=== PATIENT | male | born 1955 | race Caucasian/White ===

== ENCOUNTER → 2017-10-29 | Outpatient (CLI) | payer MEDICARE, OTHER ==
[~2017-10-29] MED LIST: ASPIR 8181 MG PO; ATORVASTATIN CA20 MG PO; BONIVA150 MG PO; CENTRUM SILVER1 EAC3 PO; CLOPIDOGREL75 MG PO; FISH OIL300 MG PO; GINKGO BILOBA60 M1 PO; METOPROLOL TART25 MG PO; NORCO 10-325 T1 EACH PO; OMEPRAZOLE40 MG PO; TACROLIMUS; Z.0.NEXIUM40 MG; Z.0.VICODIN 5-5001 E
--- NOTE | 2017-10-30 15:29 | Diagnostic Imaging Report ---
History: Low back pain and around the abdomen. Comparison studies: None Technique: Sagittal, coronal and axial T2 , sagittal T1 and IR, axial spin density oblique. Intravenous contrast: None Findings: Number of lumbar vertebral bodies:5 Alignment: Normal lordosis.No scoliosis. Soft tissues: No T2 hyperintense inflammatory changes. Paraspinal muscles: No signal abnormalities. No atrophy. Lower thoracic cord:Normal in signal and morphology. The tip of the conus is at L1-L2. Cauda equina: No masses. No arachnoiditis. Vertebrae: Normal in height and signal intensity. No compression fractures, infection or neoplasm. Degenerative changes: Disc degeneration with loss of T2 signal from T11 through L1 with patent canal and foramina L1-L2: No abnormalities. L2-L3: No abnormalities. L3-L4: Disc degeneration with loss of T2 signal. Patent canal and foramina. L4-L5: Disc degeneration with loss of T2 signal. Diffuse disc bulge and mild bilateral facet hypertrophy with grossly patent canal and mild bilateral foraminal narrowing. L5-S1: Disc degeneration with loss of T2 signal. Moderate bilateral facet hypertrophy without significant canal stenosis or foraminal narrowing. Additional findings: None IMPRESSION: Mild disc degeneration and mild to moderate facet hypertrophy the lower lumbar spine without significant canal stenosis or foraminal narrowing. Signed by: DR Oscar Fleming M.D. on 10/30/2017 3:25 PM
== END ==
LOC: MRI 09:19
DX: M54.5 Low back pain (principal); M51.36 Other intervertebral disc degeneration, lumbar region
CPT/HCPCS: 72148

== ENCOUNTER 2017-11-26 10:55 | Outpatient (RCR) | payer MEDICARE, OTHER | END 2017-11-27 | LOC: PT 10:55 | DX: M54.5 Low back pain (principal); M47.9 Spondylosis, unspecified | CPT/HCPCS: 97110 ×5; 97162; G8981; G8982 ==

== ENCOUNTER → 2017-12-27 | Outpatient (RCR) | payer MEDICARE, OTHER ==
[~2017-12-27] MED LIST changes: +ULTRAM50 MG PO
== END ==
LOC: PT 11-29 12:52
DX: M54.5 Low back pain (principal); M47.9 Spondylosis, unspecified; M53.86 Other specified dorsopathies, lumbar region; M62.81 Muscle weakness (generalized)
CPT/HCPCS: 97110 ×9; 97112; 97139; G8981; G8982

== ENCOUNTER → 2017-12-30 | Day surgery (SDC) | payer MEDICARE, OTHER ==
[2017-12-23 09:42] LABS: BASOPHILS % 0.4 % (0.0-1.0); EOSINOPHILS # (AUTO) 0.3 (0.0-0.4); EOSINOPHILS % 3.3 % (0.0-6.0); HEMATOCRIT 43.4 % (38.2-49.6); HEMOGLOBIN 14.7 g/dL (14.0-18.0); LYMPHOCYTES % 23.7 % (18.0-39.1); MEAN CORPUSCULAR HEMOGLOBIN 28.1 pg (28-32); MEAN CORPUSCULAR HGB CONC 33.9 g/dL (31-35); MONOCYTES # (AUTO) 0.8 (0.2-0.8); MONOCYTES % 9.2 % (4.4-11.3); NEUTROPHILS # (AUTO) 5.2 (2.1-6.9); NEUTROPHILS % 63.2 % (38.7-80.0); PLATELET COUNT 151 x10e3/uL (140-360); RED BLOOD COUNT 5.23 x10e6/uL (4.3-5.7); RED CELL DISTRIBUTION WIDTH 13.4 % (11.7-14.4)
[~2017-12-30] MED LIST changes: +FENTANYL CITRATE/PF 100MCG/2 ML INJ ONE; +HYOSCYAMINE SULFATE 0.5 MG/ML AMP ONE; +LIDOCAINE HCL 2% LOCAL INJ 5 ML SDV VIAL INJ ONE; +MIDAZOLAM HCL 2 MG/2 ML VIAL ONE; +PROPOFOL IV EMULSION 10 MG/ML 50 ML VIAL ONE
--- NOTE | 2017-12-30 12:37 | Operative Report ---
DATE OF PROCEDURE: December 30, 2017 REFERRING PHYSICIAN: Dr. Hafsa Wallace PROCEDURE PERFORMED: Colonoscopy and polypectomy. INDICATIONS FOR COLONOSCOPY: Colorectal cancer screening. MEDICATION: Patient was done under MAC. Please see anesthesiologist's note. PROCEDURE: With the patient in the left lateral decubitus position, the flexible fiberoptic Olympus colonoscope was inserted into the rectum with ease and advanced all the way to the cecum. It was then withdrawn slowly, and the mucosa overlying the cecum, ascending colon, and transverse colon appeared to be within normal limits. Two polyps were snared from the descending colon. Diverticular disease was noted to involve the sigmoid colon. The rectum appeared to be within normal limits. The scope was then retroflexed into the distal rectum, and small internal hemorrhoids were noted, none of which was actively bleeding. The scope was then straightened out. The rectosigmoid area as well as the distal rectal area were decompressed. Scope was subsequently withdrawn. Patient tolerated the procedure well. IMPRESSION 1. Descending colon polyps times 2, snared. 2. Diverticulosis. 3. Internal hemorrhoids, none actively bleeding. PLAN: Follow up histology. Initiate high-fiber, low-fat diet. Initiate high-fiber supplement. Patient will need a followup colonoscopy in 3 years. Job#: [id number] cc:HAFSA WALLACE MD
== END | disposition home or self-care (01) ==
LOC: OR 09:51
PROVIDERS: ATTEND Internal Medicine Gastroenterology
CPT/HCPCS: 36415; 45378; 45384; 45385; 85025; 88305; 93005; J1980; J2001; J2250

== ENCOUNTER 2018-01-10 10:00 | Outpatient (RCR) | payer MEDICARE, OTHER ==
[~2018-01-10 10:00] MED LIST changes: -FENTANYL CITRATE/PF 100MCG/2 ML INJ ONE; -HYOSCYAMINE SULFATE 0.5 MG/ML AMP ONE; -LIDOCAINE HCL 2% LOCAL INJ 5 ML SDV VIAL INJ ONE; -MIDAZOLAM HCL 2 MG/2 ML VIAL ONE; -PROPOFOL IV EMULSION 10 MG/ML 50 ML VIAL ONE
== END 2018-01-27 ==
LOC: PT 10:00
DX: M54.5 Low back pain (principal); M47.9 Spondylosis, unspecified; M53.86 Other specified dorsopathies, lumbar region; M62.81 Muscle weakness (generalized)
CPT/HCPCS: 97110 ×4; G8981 ×2; G8982 ×2

== ENCOUNTER → 2018-09-22 | Outpatient (CLI) | payer MEDICARE, MEDICAID ==
[~2018-09-22] MED LIST changes: +IOPAMIDOL 370 MG/ML 200 ML INFUS..BTL INJ ONE; +SODIUM CHLORIDE 0.9% 50ML 50 ML ONE
[2018-09-22 13:54] LABS: BLOOD UREA NITROGEN 15 mg/dL (7-26); BUN/CREATININE RATIO 19 (6-25); EST GLOMERULAR FILTRATION RATE > 60 ML/MIN (60-)
--- NOTE | 2018-09-22 15:13 | Diagnostic Imaging Report ---
EXAM: CT Abdomen and Pelvis WITH contrast INDICATION: Generalized abdominal pain. Abdominal distention. COMPARISON: None. TECHNIQUE: Abdomen and pelvis were scanned utilizing a multidetector helical scanner from the lung base to the pubic symphysis after administration of IV contrast. Coronal and sagittal reformations were obtained. Routine protocol was performed. Scan was performed when during portal venous phase. IV CONTRAST: 150 mL of Omnipaque 300 ORAL CONTRAST: Water RADIATION DOSE: Total DLP: 694.78 mGy*cm Estimated effective dose: (DLP x 0.015 x size factor) mSv COMPLICATIONS: None FINDINGS: LINES and TUBES: None. LOWER THORAX: Unremarkable HEPATOBILIARY: No focal hepatic lesions. Minimal central intrahepatic biliary dilatation. GALLBLADDER: Not visualized. SPLEEN: No splenomegaly. PANCREAS: No focal masses or ductal dilatation. ADRENALS: No adrenal nodules KIDNEYS/URETERS: Kidneys enhance symmetrically. No hydronephrosis. No cystic or solid mass lesions. 2 mm nonobstructing calculus in the upper pole of the right kidney on sagittal image 53. Mild bilateral cortical renal scarring. GI TRACT: No bowel dilatation to suggest obstruction. There is asymmetric wall thickening of the lower rectum with mild hyperenhancement; wall thickness measures up to 1.0 cm at 12:00 position on image 82 series 2; mild perirectal fat stranding and mildly increased vasculature. A few scattered colonic diverticula without CT evidence of acute diverticulitis. Appendix is not identified consistent with status post appendectomy. PELVIC ORGANS/BLADDER: 5 mm diverticulum off the posterior right wall of the urinary bladder on image 79 series 2. LYMPH NODES: No lymphadenopathy. VESSELS: There is mild atherosclerotic disease in the aorta and major arterial branches. PERITONEUM / RETROPERITONEUM: No free air or fluid. Mildly increased of the density of the root of the mesentery fat associated with mildly prominent mesenteric lymph nodes is a nonspecific finding, possibly mild "saul mesentery ". BONES: There are degenerative changes in the lumbar spine. Lower thoracic DISH. SOFT TISSUES: Left para-midline lower abdominal wall hernia with aperture estimated at 2.0 cm on image 56 series 2. The hernia sac measures 4.9 cm in length, and contains a wbxva-jf-bqlvxjen volume of mesenteric fat. IMPRESSION: 1. Mild colonic diverticulosis without acute diverticulitis. 2. Mild lower rectal wall thickening is nonspecific; suggest further evaluation with endoscopic evaluation. 3. Small left para midline lower abdominal ventral hernia containing mesenteric fat only. No herniated bowel loops. 4. Status post cholecystectomy. No significant biliary dilatation. Signed by: Dr. Morris Bianchi M.D. on 09/22/2018 3:09 PM
== END ==
LOC: CT 12:58
PROVIDERS: ATTEND Internal Medicine Gastroenterology
DX: R10.84 Generalized abdominal pain (principal)
CPT/HCPCS: 36415; 74177; 82565; 84520; Q9967

== ENCOUNTER → 2018-10-07 | Day surgery (SDC) | payer MEDICARE, MEDICAID ==
[~2018-10-07] MED LIST changes: +HYOSCYAMINE SULFATE 0.5 MG/ML INJ ONE; -IOPAMIDOL 370 MG/ML 200 ML INFUS..BTL INJ ONE; +PROGRAF1 MG PO; +PROPOFOL IV EMULSION 10 MG/ML 50 ML VIAL ONE; -SODIUM CHLORIDE 0.9% 50ML 50 ML ONE
--- OUTSIDE RECORDS SUMMARY | 2018-10-07 09:25 | XMS REPORT | CCD ---
Author Author Auto Generated Organization [facility] Address Unknown Phone Unavailable Care Team Providers Care Study Abroad Coordinator Name Role Phone Kali Jay CP Physician, Non Associated RP Unavailable PelaezEric miranda PP [phone] Allergies, Adverse Reactions, Alerts Substance Reaction Status codeine Active Vital Signs Most recent to oldest [Reference Range]: 1 Height 162.50 cm (12/10/2011 10:42:00) Systolic Blood Pressure [90-140 mmHg] 139 mmHg (12/10/2011 10:42:00) Diastolic Blood Pressure [60-90 mmHg] 96 mmHg *HI* (12/10/2011 10:42:00) Respiratory Rate [14-20 BRMIN] 16 BRMIN (12/10/2011 10:42:00) Peripheral Pulse Rate [60-100 bpm] 82 bpm (12/10/2011 10:42:00) Weight 81.100 kg (12/10/2011 10:42:00)
--- OUTSIDE RECORDS SUMMARY | 2018-10-07 09:25 | XMS REPORT | Summary of Care ---
Author Author [facility] Organization [facility] Address Unknown Phone Unavailable Encounter GEMA Aponte(JESUS) [id number] Date(s): 04/02/17 - 05/01/17 [facility] [address] [place] [address] [place] [address] Discharge Disposition: Home or Self Care Attending Physician: Duran Tomlin MD Referring Physician: Duran Tomlin MD Vital Signs Most recent to 1 oldest [Reference Range]: Height 163.5 cm (04/02/17 9:17 AM) Blood Pressure 128/89 mmHg [90-140/60-90 mmHg] (04/02/17 9:17 AM) Respiratory Rate 19 BRMIN [14-20 BRMIN] (04/02/17 9:17 AM) Peripheral Pulse 76 bpm Rate [60-100 bpm] (04/02/17 9:17 AM) Weight 86.3 kg (04/02/17 9:17 AM) Body Mass Index 32.28 m2 (04/02/17 9:17 AM) Problem List Condition Effective Dates Status Health Status Informant Liver 05/04/99 Active transplanted(Confirm ed) H/O Active immunosuppressive therapy(Confirmed) Liver Resolved failure(Confirmed) Low back pain1 07/04/13 Active Obesity(Confirmed) Active Encounter for Active aftercare following liver transplant(Confirmed ) 1Data migrated from [employer] on 04/23/15. Allergies, Adverse Reactions, Alerts Substance Reaction Severity Status codeine Active Medications atorvastatin 20 mg oral tablet 20 mg=1 tab, PO, Bedtime, # 30 tab, 0 Refill(s) Start Date: 04/02/17 Status: Ordered Daily Multiple for Women 50+ 1 tab, PO, Daily, 0 Refill(s) Start Date: 04/02/17 Status: Ordered Fish Oil 1000 mg oral capsule 1,000 mg=1 cap, PO, Daily, 0 Refill(s) Start Date: 04/02/17 Status: Ordered metoprolol tartrate 25 mg oral tablet 25 mg=1 tab, PO, BID, # 180 tab, 0 Refill(s) Start Date: 04/02/17 Status: Ordered Multiple Vitamins oral tablet 1 tab, PO, Daily, # 30 tab, 0 Refill(s) Start Date: 04/02/17 Status: Ordered Greene 10/325 oral tablet 1 tab, PO, Q6H, PRN for pain, # 24 tab, 0 Refill(s) Start Date: 04/02/17 Stop Date: 04/08/17 Status: Ordered omeprazole 40 mg oral delayed release capsule 40 mg=1 cap, PO, Daily, # 30 cap, 0 Refill(s) Start Date: 04/02/17 Status: Ordered Results No data available for this section Immunizations No data available for this section Procedures Procedure Date Related Diagnosis Body Site Appendectomy LTx - Liver transplant Social History Social History Type Response Smoking Status Former smoker; Type: Cigarettes; Tobacco use per day: 10; Number of years: 20; Started at age: 20.0; Stopped at age: 59; Previous treatment: None; Ready to change: No; Concerns about tobacco use in household: No; Exposure to Tobacco Smoke None; Cigarette Smoking Last 365 Days Yes; Reg Smoking Cessation Counseling No Assessment and Plan No data available for this section
--- OUTSIDE RECORDS SUMMARY | 2018-10-07 09:25 | XMS REPORT | CCD ---
Author Author Auto Generated Organization [facility] Address Unknown Phone Unavailable Care Team Providers Care Cut Out And Marking Machine Operator Name Role Phone Kali Jay RP Eric Pelaez PP [phone] Allergies, Adverse Reactions, Alerts Substance Reaction Status codeine Active
--- OUTSIDE RECORDS SUMMARY | 2018-10-07 09:25 | XMS REPORT | Continuity of Care Document ---
Author Author [facility] Interface Address Unknown Phone Unavailable Problems Problem Status Onset Date Classification Date Reported Comments Source CLINIC AND LABS Active 09/23/2018 [facility] S/P LIVER [place] Active 04/01/2017 [facility] F/U Active 12/11/2015 [facility] LIVER PO0T CLINIC Active 07/04/2014 [facility] Low back pain<sup>1</sup> Active 07/04/2013 Problem 05/04/2017 Data migrated from [employer] on 04/23/15. [facility] ELEV LFT Active 11/24/2001 [facility] Liver transplanted Active 05/04/1999 Problem 05/04/2017 [facility] H/O immunosuppressive therapy Active Problem 05/04/2017 [facility] Liver failure Resolved Problem 05/04/2017 [facility] [place] Obesity Active Problem 05/04/2017 [facility] Encounter for aftercare following liver transplant Active Problem 05/04/2017 [facility] CHRONIC PAIN SYNDROME Active [facility] [place] Medications Medication Details Route Status Patient Instructions Ordering Provider Order Date Source Fish Oil 1000 mg oral capsule 1,000 mg=1 cap, PO, Daily, 0 Refill(s) Active 04/02/2017 [facility] Multiple Vitamins oral tablet 1 tab, PO, Daily, # 30 tab, 0 Refill(s) Active 04/02/2017 [facility] Acetaminophen 325 MG / Hydrocodone Bitartrate 10 MG Oral Tablet [[place] 10/325] 1 tab, PO, Q6H, PRN for pain, # 24 tab, 0 Refill(s) Active 04/02/2017 [facility] metoprolol tartrate 25 mg oral tablet 25 mg=1 tab, PO, BID, # 180 tab, 0 Refill(s) Active 04/02/2017 [facility] Daily Multiple for Women 50+ 1 tab, PO, Daily, 0 Refill(s) Active 04/02/2017 [facility] omeprazole 40 mg oral delayed release capsule 40 mg=1 cap, PO, Daily, # 30 cap, 0 Refill(s) Active 04/02/2017 [facility] atorvastatin 20 mg oral tablet 20 mg=1 tab, PO, Bedtime, # 30 tab, 0 Refill(s) Active 04/02/2017 [facility] Tacrolimus 1 MG Oral Capsule [Prograf] 1 mg=1 cap, PO, Q12H, # 60 cap, 11 Refill(s), Pharmacy: [facility] [id number] Active 12/31/2015 [facility] clopidogrel 75 MG Oral Tablet [Plavix] 75 mg=1 tab, PO, Daily, # 30 tab, 0 Refill(s) Active 12/20/2015 [facility] Aspirin 81 MG Enteric Coated Tablet 81 mg=1 tab, PO, Daily, # 90 tab, 3 Refill(s) Active 12/20/2015 [facility] tacrolimus 1 mg oral capsule 1 mg=1 cap, PO, Q12H, # 60 cap, 0 Refill(s), Pharmacy: [facility] [id number] Active 03/06/2014 [facility] Aspirin (Aspir 81) 81 Mg Tablet. Daily Active [facility] Atorvastatin Calcium 20 Mg Tablet Bedtime Active [facility] Clopidogrel Bisulfate (Clopidogrel) 75 Mg Tablet Daily Active [facility] Ginkgo Biloba 60 Mg Capsule Daily Active [facility] Hydrocodone Bit/Acetaminophen ([place] 10-325 Tablet) 1 Each Tablet Daily Active [facility] Ibandronate Sodium (Boniva) 150 Mg Tab Q Monthly Active [facility] Metoprolol Tartrate 25 Mg Tablet Daily Active [facility] Mu-Vits-Min Th/Lycopene/Lutein (Centrum Silver Tablet) 1 Each Tablet Daily Active [facility] [place]ton-3 Fatty Acids (Fish Oil) 300 Mg Capsule Daily Active [facility] Omeprazole 40 Mg Capsule. Daily Active [facility] Tacrolimus 0.5 Mg Capsule Twice A Day Active [facility] Tramadol Hcl (Ultram) 50 Mg Tablet As Needed Active [facility] Allergies, Adverse Reactions, Alerts Substance Category Reaction Severity Reaction type Status Date Reported Comments Source No Known Drug Allergies Mild Allergy to Substance Active 02/03/2011 [facility] codeine Assertion Drug allergy Active [facility] Immunizations Immunization Date Given Site Status Last Updated Comments Source Results Order Name Results Value Reference Range Date Interpretation Comments Source Automated blood basophil count (count/volume) Automated blood basophil count (count/volume) 0.0 0.0 - 0.1 12/23/2017 [facility] Automated blood basophil count as percentage of total leukocytes Automated blood basophil count as percentage of total leukocytes 0.4 0.0 - 1.0 12/23/2017 [facility] Automated blood eosinophil count Automated blood eosinophil count 0.3 0.0 - 0.4 12/23/2017 [facility] Automated blood eosinophil count as percentage of total leukocytes Automated blood eosinophil count as percentage of total leukocytes 3.3 0.0 - 6.0 12/23/2017 [facility] Automated blood hematocrit (volume fraction) Automated blood hematocrit (volume fraction) 43.4 38.2 - 49.6 12/23/2017 [facility] Automated blood lymphocyte count as percentage ot total leukocytes Automated blood lymphocyte count as percentage ot total leukocytes 23.7 18.0 - 39.1 12/23/2017 [facility] Automated blood monocyte count as percentage of total leukocytes Automated blood monocyte count as percentage of total leukocytes 9.2 4.4 - 11.3 12/23/2017 [facility] Automated blood neutrophil count Automated blood neutrophil count 5.2 2.1 - 6.9 12/23/2017 [facility] Automated blood platelet count (count/volume) Automated blood platelet count (count/volume) 151 140 - 360 12/23/2017 [facility] Automated blood segmented neutrophil count as percentage of total leukocytes Automated blood segmented neutrophil count as percentage of total leukocytes 63.2 38.7 - 80.0 12/23/2017 [facility] Automated erythrocyte mean corpuscular hemoglobin (mass per erythrocyte) Automated erythrocyte mean corpuscular hemoglobin (mass per erythrocyte) 28.1 28 - 32 12/23/2017 [facility] Automated erythrocyte mean corpuscular hemoglobin concentration measurement (mass/volume) Automated erythrocyte mean corpuscular hemoglobin concentration measurement (mass/volume) 33.9 31 - 35 12/23/2017 [facility] Automated erythrocyte mean corpuscular volume Automated erythrocyte mean corpuscular volume 83.0 81 - 99 12/23/2017 [facility] Blood erythrocytes automated count (number/volume) Blood erythrocytes automated count (number/volume) 5.23 4.3 - 5.7 12/23/2017 [facility] Blood hemoglobin measurement (moles/volume) Blood hemoglobin measurement (moles/volume) 14.7 14.0 - 18.0 12/23/2017 [facility] Blood leukocytes automated count (number/volume) Blood leukocytes automated count (number/volume) 8.27 4.8 - 10.8 12/23/2017 [facility] Blood lymphocytes count (number/volume) Blood lymphocytes count (number/volume) 2.0 1.0 - 3.2 12/23/2017 [facility] Blood monocytes automated count (number/volume) Blood monocytes automated count (number/volume) 0.8 0.2 - 0.8 12/23/2017 [facility] Red Cell Distribution Width 13.4 11.7 - 14.4 12/23/2017 [facility] IM GRANULOCYTES % 0.2 0.0 - 1.0 12/23/2017 [facility] Absolute Immature Granulocyte (auto 0.02 0 - 0.1 12/23/2017 [facility] Vital Signs Vital Sign Value Date Comments Source Height 163.5 cm 04/02/2017 [facility] BMI Calculated 32.28 04/02/2017 [facility] Weight 86.3 04/02/2017 [facility] Heart Rate 76 04/02/2017 [facility] Respitory Rate 19 04/02/2017 [facility] Systolic (mm Hg) 128 04/02/2017 [facility] Diastolic (mm Hg) 89 04/02/2017 [facility] Respitory Rate 16 12/20/2015 [facility] Weight 86.932 12/20/2015 [facility] BMI Calculated 32.52 12/20/2015 [facility] Height 163.5 cm 12/20/2015 [facility] Heart Rate 73 12/20/2015 [facility] Systolic (mm Hg) 143 12/20/2015 [facility] Diastolic (mm Hg) 90 12/20/2015 [facility] Heart Rate 82 12/10/2011 [facility] Respitory Rate 16 12/10/2011 [facility] Systolic (mm Hg) 139 12/10/2011 [facility] Diastolic (mm Hg) 96 12/10/2011 [facility] Weight 81.100 12/10/2011 [facility] Height 162.50 cm 12/10/2011 [facility] Encounters Location Location Details Encounter Type Encounter Number Reason For Visit Attending Provider ADM Date DC Date Status Source [facility] TP [id number] S/P LIVER TX WILMAR GREY 12/10/2011 Active [facility] [place] [id number] S/P LIVER TX WILMAR GREY 06/16/2012 Active [facility] Phone Message [id number] 03/06/2014 03/08/2014 Transplant [facility]tr [facility] OP Therapy Patients [id number] Herson Maldonado 01/16/2015 01/16/2015 [facility] Transplant [facility] OP Post-Transplant [id number] Duran Tomlin 12/20/2015 01/19/2016 [facility] OP Post-Transplant [id number] Duran Tomlin 04/02/2017 05/02/2017 [facility] Registered Clinic [id number] AMY WALLACE MD 04/09/2017 [facility] Registered Clinic [id number] AMY WALLACE MD 10/29/2017 [facility] Discharged Recurring [id number] AMY WALLACE MD 11/15/2017 11/27/2017 [facility] Discharged Recurring [id number] AMY WALLACE MD 11/29/2017 12/27/2017 [facility] Registered Surgical Day Care [id number] BREONNA WALLACE MD 12/30/2017 [facility] Discharged Recurring [id number] AMY WALLACE MD 01/10/2018 01/27/2018 [facility] Procedures Procedure Code Date Perfomer Comments Source COLONOSCOPY W/LESION REMOVAL 78150 12/30/2017 [facility] Magnetic resonance imaging of lumbar spine without contrast [id number] 10/29/2017 [facility] Magnetic resonance imaging of brain without contrast [id number] 04/09/2017 [facility] Appendectomy [id number] [facility] LTx - Liver transplant [id number] [facility] Appendectomy [id number] [facility] [place] LTx - Liver transplant [id number] [facility] [place]
--- OUTSIDE RECORDS SUMMARY | 2018-10-07 09:25 | XMS REPORT | Summary of Care ---
Author Author [facility] Organization [facility] Address Unknown Phone Unavailable Care Team Providers Care Higher Level Teaching Assistant Name Role Phone Pelaez, Eric PCP Encounter [facility] Fay([facility]) [id number] Date(s): 12/20/15 - 01/18/[address] [place] [address] Discharge Disposition: Home Attending Physician: Duran Tomlin MD Referring Physician: Duran Tomlin MD Vital Signs Most recent to 1 oldest [Reference Range]: Height 163.5 cm (12/20/15 10:47 AM) Blood Pressure 143/90 mmHg [90-140/60-90 mmHg] *HI* (12/20/15 10:47 AM) Respiratory Rate 16 BRMIN [14-20 BRMIN] (12/20/15 10:47 AM) Peripheral Pulse 73 bpm Rate [60-100 bpm] (12/20/15 10:47 AM) Weight 86.932 kg (12/20/15 10:47 AM) Body Mass Index 32.52 m2 (12/20/15 10:47 AM) Problem List Condition Effective Dates Status Health Status Informant Liver Resolved failure(Confirmed) Low back pain1 07/04/13 Active Obesity(Confirmed) Active 1Data migrated from [employer] on 04/23/15. Allergies, Adverse Reactions, Alerts Substance Reaction Severity Status codeine Active Medications aspirin 81 mg tablet, enteric coated 81 mg=1 tab, PO, Daily, # 90 tab, 3 Refill(s) Start Date: 12/20/15 Status: Ordered Plavix 75 mg oral tablet 75 mg=1 tab, PO, Daily, # 30 tab, 0 Refill(s) Start Date: 12/20/15 Status: Ordered Prograf 1 mg oral capsule 1 mg=1 cap, PO, Q12H, # 60 cap, 11 Refill(s), Pharmacy: [facility] [id number] Start Date: 12/31/15 Status: Ordered Results No data available for [...]
--- OUTSIDE RECORDS SUMMARY | 2018-10-07 09:25 | XMS REPORT | Summary of Care ---
Author Organization Unknown Address Unknown Phone Unavailable Care Team Providers Care Ore Miner Blasting Name Role Phone Eric Pelaez PCP Encounter HQ Toshiar_shaun(JESUS) [id number] Date(s): 03/06/14 - 03/07/14 [facility] [address] Reason for Visit Phone Message Problem List No data available for this section Allergies, Adverse Reactions, Alerts Substance Reaction Severity Status codeine Active Medications tacrolimus 1 mg oral capsule 1 mg=1 cap, PO, Q12H, # 60 cap, 0 Refill(s), Pharmacy: [facility] [id number] Start Date: 03/06/14 Status: Ordered Medications Administered During Your Visit No data available for this section Immunizations No data available for this section
--- OUTSIDE RECORDS SUMMARY | 2018-10-07 09:25 | XMS REPORT | Summary of Care ---
Author Organization Unknown Address Unknown Phone Unavailable Care Team Providers Care Spring Tester Name Role Phone Eric Pelaez PCP Encounter [facility] Encntr_shaun(FIN) [id number] Date(s): 01/16/15 - 01/16/15 [facility] [place] Physician Attending: Herson Maldonado DO Vital Signs No data available for this section Problem List Condition Effective Dates Status Health Status Informant Liver Resolved failure(Confirmed) Allergies, Adverse Reactions, Alerts Substance Reaction Severity Status codeine Active Medications No data available for this section Results No data available for this section [...]
--- OUTSIDE RECORDS SUMMARY | 2018-10-07 09:26 | XMS REPORT ---
Author Author [facility] Address Unknown Phone Unavailable Care Team Providers Care Manager Product Support Name Role Phone BREONNA WALLACE Unavailable Unavailable AMY WALLACE Unavailable Unavailable Payers Payer Name Policy Type Policy Number Effective Date Expiration Date Problems This patient has no known problems. Allergies, Adverse Reactions, Alerts Allergy Name Allergy Type Status Severity Reaction(s) Onset Date Inactive Date Treating Clinician Comments No Known Allergies DA Active U 2018-07-31 00:00:00 No Known Allergies DA Active U 2017-04-05 00:00:00 Medications This patient has no known medications. Results Test Description Test Time Test Comments Text Results Atomic Results Result Comments CT ABDOMEN/PELVIS W 2018-09-22 14:37:00 [place] [address] Patient Name: LINA DELGADO MR #: [id number] : 1955 Age/Sex: 63/M Req #: [id number] Adm Physician: Ordered by: BREONNA WALLACE MD Report #: [id number] Location: CT Room/Bed: Procedure: [id number] CT/CT ABDOMEN/PELVIS W Exam Date: 09/22/18 Exam Time: 1410 REPORT STATUS: Signed EXAM: CT Abdomen and Pelvis WITH contrast INDICATIO N: Generalized abdominal pain. Abdominal distention. COMPARISON: None. TECHNIQUE: Abdomen and pelvis were scanned utilizing a multidetector helical scanner from the lung base to the pubic symphysis after administration of IV contrast. Coronal and sagittal reformations were obtained. Routine protocol was performed. Scan was performed when during portal venous phase. IV CONTRAST: 150 mL of Omnipaque 300 ORAL CONTRAST: Water RADIATION DOSE: Total DLP: 694.78 mGy*cm Estimated effective dose: (DLP x 0.015 x size factor) mSv COMPLICATIONS: None FINDINGS: LINES and TUBES: None. LOWER THORAX: Unremarkable HEPATOBILIARY: No focal hepatic lesions. Minimal central intrahepatic biliary dilatation. GALLBLADDER: Not visualized. SPLEEN: No splenomegaly. PANCREAS: No focal masses or ductal dilatation. ADRENALS: No adrenal nodules KIDNEYS/URETERS: Kidneys enhance symmetrically. No hydronephrosis. No cystic or solid mass lesions. 2 mm nonobstructing calculus in the upper pole of the right kidney on sagittal image 53. Mild bilateral cortical renal scarring. GI TRACT: No bowel dilatation to suggest obstruction. There is asymmetric wall thickening of the lower rectum with mild hyperenhancement; wall thickness measures up to 1.0 cm at 12:00 position on image 82 series 2; mild perirectal fat stranding and mildly increased vasculature. A few scattered colonic diverticula without CT evidence of acute diverticulitis. Appendix is not identified consistent with status post appendectomy. PELVIC ORGANS/BLADDER: 5 mm diverticulum off the posterior right wall of the urinary bladder on image 79 series 2. LYMPH NODES: No lymphadenopathy. VESSELS: There is mild atherosclerotic disease in the aorta and major arterial branches. PERITONEUM / RETROPERITONEUM: No free air or fluid. Mildly increased of the density of the root of the mesentery fat associated with mildly prominent mesenteric lymph nodes is a nonspecific finding, possibly mild "saul mesentery ". BONES: There are degenerative changes in the lumbar spine. Lower thoracic DISH. SOFT TISSUES: Left para-midline lower abdominal wall hernia with aperture estimated at 2.0 cm on image 56 series 2. The hernia sac measures 4.9 cm in length, and contains a [id number] volume of mesenteric fat. IMPRESSION: 1. Mild colonic diverticulosis without acute diverticulitis. 2. Mild lower rectal wall thickening is nonspecific; suggest further evaluation with endoscopic evaluation. 3. Small left para midline lower abdominal ventral hernia containing mesenteric fat only. No herniated bowel loops. 4. Status post cholecystectomy. No significant biliary dilatation. Signed by: Dr. Morris Corona M.D. on 09/22/2018 3:09 PM Dictated By: LIZ CORONA MD, MD 08 Transcribed By: AMIRA on 09/22/181508 COPY TO: BREONNA WALLACE MD MRI SPINE LUMBAR WO [place] [address] Patient Name: LINA DELGADO MR #: [id number] : 1955 Age/Sex: 62/M Req #: [id number] Adm Physician: Ordered by: AMY WALLACE MD Report #: [id number] Location: MRI Room/Bed: Procedure: [id number] MRI/MRI SPINE LUMBAR WO Exam Date: Exam Time: REPORT STATUS: Signed History: Low back pain and around the abdomen. Comparison studies: None Technique: Sagittal, coronal and axial T2 , sagittal T1 and IR, axial spin density oblique. Intravenous contrast: None Findings: Number of lumbar vertebral bodies:5 Alignment: Normal lordosis.No scoliosis. Soft tissues: No T2 hyperintense inflammatory changes. Paraspinal muscles: No signal abnormalities. No atrophy. Lower thoracic cord:Normal in signal and morphology. The tip of the conus is at L1-L2. Cauda equina: No masses. No arachnoiditis. Vertebrae: Normal in height and signal intensity. No compression fractures, infection or neoplasm. Degenerative changes: Disc degeneration with loss of T2 signal from T11 through L1 with patent canal and foramina L1-L2: No abnormalities. L2-L3: No abnormalities. L3-L4: Disc degeneration with loss of T2 signal. Patent canal and foramina. L4-L5: Disc degeneration with loss of T2 signal. Diffuse disc bulge and mild bilateral facet hypertrophy with grossly patent canal and mild bilateral foraminal narrowing. L5-S1: Disc degeneration with loss of T2 signal. Moderate bilateral facet hypertrophy without significant canal stenosis or foraminal narrowing. Additional findings: None IMPRESSION: Mild disc degeneration and mild to moderate facet hypertrophy the lower lumbar spine without significant canal stenosis or foraminal narrowing. Signed by: DR Oscar Fleming M.D. on 10/30/2017 3:25 PM Dictated By: OSCAR BOBO MD [id number] Transcribed By: AMIRA on 10/30/17 1525 COPY TO: AMY WALLACE MD
[2018-10-07 14:00] VITALS: BP 133/64
--- NOTE | 2018-10-07 16:28 | Operative Report ---
DATE OF PROCEDURE: October 07, 2018 REFERRING PHYSICIAN: Dr. Hafsa Wallace PROCEDURES PERFORMED 1. Esophagogastroduodenoscopy with biopsies. 2. Colonoscopy with polypectomy and biopsies. INDICATIONS FOR EGD: Upper abdominal pain. INDICATIONS FOR COLONOSCOPY: Lower abdominal pain, abnormal CT scan of the abdomen. MEDICATION: Patient was done under MAC. Please see anesthesiologist's note. PROCEDURE: With the patient in the left lateral decubitus position, the flexible fiberoptic Olympus gastroscope was introduced into the esophagus under direct visualization without any difficulty. There was some patchy erythema noted in the distal esophagus. The scope was then advanced with ease into the stomach, traversing a moderate-size hiatal hernia. Mucosa overlying the antrum and the body revealed some patchy erythema and low-grade to moderate edema, and biopsies were obtained and sent to stain for H. pylori. Pylorus appeared to be of normal contour and shape. It was intubated with ease, and the scope was advanced all the way to the 2nd portion of the duodenum. Biopsies were obtained from the proximal 2nd portion and the duodenal bulb to rule out sprue. The scope was then withdrawn back into the stomach and retroflexed. The mucosa overlying the fundus and the cardia appeared to be within normal limits. The scope was then straightened out. It was subsequently withdrawn. Patient tolerated the procedure well. IMPRESSION 1. Mild distal esophagitis. 2. Moderate-size hiatal hernia. 3. Gastritis, biopsied. Biopsies sent to stain for H. pylori. 4. Rule out sprue. PLAN: Follow up histology. Continue omeprazole 40 mg 1 p.o. q.a.m. a.c. The patient was then turned around. After adequate lubrication of the anal canal, a flexible fiberoptic Olympus colonoscope was inserted into the rectum with ease and advanced all the way to the cecum. The scope was then withdrawn slowly. The mucosa overlying the cecum appeared to be within normal limits. One minute polyp was snared from the ascending colon. The transverse appeared to be within normal limits. There were some mild patchy inflammatory changes noted in the left colon. Random biopsies were obtained. Diverticular disease was noted to involve the sigmoid colon. Similar inflammatory changes were noted in the rectum, and biopsies were obtained. The scope was then retroflexed into the distal rectum, and small internal hemorrhoids were noted, none of which was actively bleeding. The scope was then straightened out. It was subsequently withdrawn. Patient tolerated the procedure well. IMPRESSION 1. Ascending colon polyp, snared. 2. Mild patchy left-sided colitis. 3. Diverticulosis. 4. Proctitis, mild. 5. Internal hemorrhoids, none actively bleeding. PLAN: Follow up histology. Initiate Bentyl 10 mg 1 p.o. t.i.d. and VSL #3 one p.o. daily. Patient might benefit from a followup colonoscopy in 3 to 5 years. Job#: [id number] cc:HAFSA WALLACE MD
== END | disposition home or self-care (01) ==
LOC: OR 09:17
PROVIDERS: ATTEND Internal Medicine Gastroenterology
DX: K20.9 Esophagitis, unspecified (principal); R10.84 Generalized abdominal pain; K44.9 Diaphragmatic hernia without obstruction or gangrene; Z68.34 Body mass index [BMI] 34.0-34.9, adult; K29.70 Gastritis, unspecified, without bleeding; K63.5 Polyp of colon; K51.50 Left sided colitis without complications; K57.30 Diverticulosis of large intestine without perforation or abscess without bleeding; K62.89 Other specified diseases of anus and rectum; K64.8 Other hemorrhoids; Z94.4 Liver transplant status; Z79.82 Long term (current) use of aspirin; Z95.5 Presence of coronary angioplasty implant and graft
CPT/HCPCS: 43239; 45385; 88305; 88312; J1980; J2704; 45378; 45380; 45384

== ENCOUNTER 2020-06-06 12:26 | Emergency (ER) | payer MEDICARE, OTHER ==
[~2020-06-06] VITALS: Ht 165.1 cm; Wt 88.9 kg
[~2020-06-06 12:26] MED LIST changes: -HYOSCYAMINE SULFATE 0.5 MG/ML INJ ONE; -PROPOFOL IV EMULSION 10 MG/ML 50 ML VIAL ONE
--- OUTSIDE RECORDS SUMMARY | 2020-06-06 13:40 | XMS REPORT | Continuity of Care Document ---
Author Author [facility] t Organization [facility] Address [address] [place] [address] Phone Unavailable Care Team Providers Care Core Cutter And Reamer Name Role Phone NONSTAFF PCP Unavailable PELAEZ, SOUHEIL Attphys Unavailable PELAEZ, BREONNA Attphys Unavailable Payers Payer Name Policy Type Policy Number Effective Date Expiration Date S haylee [employer] [id number] 2017 00:00:00 [facility] Medicare A & B [id number] 1999 00:00:00 C [facility] [employer] Plus [id number] 2017 00:00:00 [facility] Problems This patient has no known problems. Allergies, Adverse Reactions, Alerts Allergy Name Allergy Type Status Severity Reaction(s) Onset Date Inacti ve Date Treating Clinician Comments Source No Known Allergies DA Active U 2018-07-31 00:00:00 [facility] No Known Allergies DA Active U 2017-04-05 00:00:00 [facility] Medications Ordered Medication Name Filled Medication Name Start Date Stop Da te Current Medication? Ordering Clinician Indication Dosage Frequency Signature (SIG) Comments Components Source Aspirin (Aspir 81) 81 Mg Tablet. Aspirin (Aspir 81) 81 Mg Tablet. Yes 1 Daily [facility] Atorvastatin Calcium 20 Mg Tablet Atorvastatin Calcium 20 Mg Tablet Yes 20 Bedtime [facility] Clopidogrel Bisulfate (Clopidogrel) 75 Mg Tablet Clopi dogrel Bisulfate (Clopidogrel) 75 Mg Tablet Yes 75 Daily [facility] Ginkgo Biloba 60 Mg Capsule Ginkgo Biloba 60 Mg Capsule Yes 1 Daily [facility] Hydrocodone Bit/Acetaminophen ([place] 10-325 Tablet) 1 Each Tablet Hydrocodone Bit/Acetaminophen ([place] 10-325 Tablet) 1 Each Tablet Yes 1 Daily [facility] Ibandronate Sodium (Boniva) 150 Mg Tab Ibandronate Sodium (Boniv a) 150 Mg Tab Yes 1 Q Monthly [facility] Metoprolol Tartrate 25 Mg Tablet Metoprolol Tartrate 25 Mg Tablet Yes 25 Daily [facility] Mu-Vits-Min Th/Lycopene/Lutein (Centrum Silver Tablet) 1 Each Tablet Mu-Vits-Min Th/Lycopene/Lutein (Centrum Silver Tablet) 1 Each Tablet Yes 1 Daily [facility] [place]-3 Fatty Acids (Fish Oil) 300 Mg Capsule [place]-3 Fatty Acids (Fish Oil) 300 Mg Capsule Yes 300 Daily [facility] Omeprazole 40 Mg Capsule. Omeprazole 40 Mg Capsule. Yes 40 Daily [facility] Tacrolimus 0.5 Mg Capsule Tacrolimus 0.5 Mg Capsule Yes 1 Twice A Day [facility] Tramadol Hcl (Ultram) 50 Mg Tablet Tramadol Hcl (Ultram) 50 Mg Tablet Yes 50 As Needed [facility] Procedures Procedure Date / Time Performed Performing Clinician [facility] e COLONOSCOPY W/LESION REMOVAL 2017-12-30 00:00:00 BREONNA PELAEZ [facility] Magnetic resonance imaging of lumbar spine without contrast 2017-10-29 00:00:00 AMY PELAEZ [facility] Magnetic resonance imaging of brain without contrast 2017-03 00:00:00 PELAEZAMY [facility] Encounters Start Date/Time End Date/Time Encounter [facility] Ad[facility] Encounter ID Source 2019-09-21 13:36:13 Outpatient [facility] [id number] [facility] 2018-01-10 10:00:00 2018-01-27 23:59:00 Discharged [facility] [id number] [facility] 2017-12-30 09:51:00 2017-12-30 09:51:00 Registered Surgical Day Care [facility] [id number] [facility] 2017-11-29 12:52:00 2017-12-27 23:59:00 Discharged Recurring [facility] [id number] [facility] 2017-11-15 11:14:00 2017-11-27 23:59:00 Discharged Recurring [facility] [id number] [facility] 2017-10-29 09:19:00 2017-10-29 09:19:00 Registered Clinic AMY MELENDEZ [facility] [id number] [facility] 2017-04-09 11:11:00 2017-04-09 11:11:00 Registered Clinic [facility] [id number] [facility] Results Test Description Test Time Test Comments Results Result Comments Source HIP RIGHT 2-3 VW (+/- PELVIS) 2019-09-18 15:18:00 [place] [address] Patient Name: LINA DELGADO MR #: [id number] : 1955 Age/Sex: 64/M Req #: [id number] Adm Physician: Ordered by: AMY PELAEZ MD Report #: [id number] Location: [facility] Room/Bed: Procedure: [id number] DX/HIP RIGHT 2-3 VW (+/- PELVIS) Exam Date: Exam Time: REPORT STATUS: Signed EXAMINATION: HIP RIGHT 2-3 VW (+/- PELVIS) INDICATION: Right hip pain COMPARISON: None FINDINGS: No acute fracture or dislocation. Alignment appears anatomic. Mild degenerative changes of the both hip joints. Phlebolith in the right pelvis. Degenerative changes of the lower lumbar spine. IMPRESSION: No acute osseous injury. Mild degenerative changes of both hip joints. Signed by: Roberta Duff MD on 09/18/2019 3:18 PM Dictated By: ROBERTA DUFF MD 17 Transcribed By: AMIRA on 09/18/191517 COPY TO: AMY PELAEZ MD HERNIA 2019-01-04 16:20:00 RUN DATE: 01/04/19 [facility] [employer] [facility] PAGE 1 RUN TIME: 1620 Specimen Inquiry RUN USER: INTERFACE PATIENT: LINA DELGADO LOC: V.DSU U #: [id number] AGE/SX: 63/M ROOM: RE01/03/19REG DR: Martin Caldwell MD : 55 BED: DIS: STATUS: [facility] TLOC: SPEC #: [id number] RECD: 01/03/19 STATUS: REMA FOX #: [id number] VERONICA: 01/03/19- SUBM DR: Martin Caldwell MD ENTERED: 01/03/19 SP TYPE: HERNIA OTHR DR: Amy Pelaez MD ORDERED: GROSS COPIES TO: Amy Pelaez MD [address] [place], [place] [id number] Martin Caldwell MD [address] [facility] [address] [place] [id number] PROCEDURES: GROSS (01/04/19) TISSUES: HERNIA - SAC AND CONTENTS CLINICAL HISTORY COLLECTION DATE: 01/03/19 VENTRAL HERNIA FINAL DIAGNOSIS Hernia sac and contents, herniorrhaphy: MATURE ADIPOSE TISSUE AND FIBROUS TISSUE WITH MESOTHELIAL LINING (HERNIA SAC) SCATTERED LYMPHOID AGGREGATES PRESENT IN HERNIA SAC WALL NEGATIVE FOR MALIGNANCY RRB/sm D 82587 MACROSCOPIC The specimen is received in formalin, labeled with the patient's name, and identified as "hernia sac and contents". It consists of multiple portions of lamb yellow, lobulated, soft fatty tissue focally covered by lamb glistening membrane. It measures 8.5 X 4.0 X 3.5 cm in aggregate. Serially sectioning CONTINUED ON NEXT PAGE RUN DATE: 01/04/19 [facility] PAGE 2 RUN TIME: 1620 Specimen Inquiry RUN USER: INTERFACE SPEC #: [id number] PATIENT: LINA DELGADO #[id number] (Continued) MACROSCOPIC (Continued) reveals lamb yellow soft cut surface. No focal abnormality is noted. Quality Coordinator sections are submitted as (1A-1B). GROSS PERFORMED AT [facility] [address] [place] [address] (p)[phone] MICROSCOPIC All of the stains, including any controls performed, stain appropriately. MICROSCOPIC PERFORMED AT [facility] [address] [place] [address] (p)[phone] PERFORMING SITE Diagnosis performed at: [facility], [place] [address] [place] [address] Signed SIGNATURE ON FILE Roland Biggs MD 01/04/19 1620 ---- -------- END OF REPORT BASIC METABOLIC PANEL 2018-12-23 12:42:00 Test Item SODIUM (test code = NA) 140 mmol/L 136-145 N POTASSIUM (test code = K) 4.9 mmol/L 3.5-5.1 N CHLORIDE (test code = CL) 106.0 mmol/L 98-107 N CARBON DIOXIDE (test code = CO2) 28.0 mmol/L 21-32 N ANION GAP (test code = GAP) 10.9 10-20 N GLUCOSE (test code = GLU) 96 mg/dL 74-106 N BLOOD UREA NITROGEN (test code = BUN) 16 mg/dL 7-18 N GLOMERULAR FILTRATION RATE (test code = GFR) > 60 mL/min >=60 Estimated GFR by using Modified MDRD formula.Chronic kidney disease is defined as either kidney damageor GFR <60 mL/min/1.73 m2 for >3 months. CREATININE (test code = CREAT) 1.00 mg/dL 0.7-1.3 N BUN/CREATININE RATIO (test code = BUN/CREA) 16.0 10-20 N CALCIUM (test code = CA) 8.8 mg/dL 8.5-10.1 N B 12/23/18 1217HEPATIC FUNCTION [id number] 12:42:00* Test Item Value Reference Range Interpretation Comments TOTAL PROTEIN (test code = PROT) 7.5 gram/dL 6.4-8.2 N ALBUMIN (test code = ALB) 3.9 g/dL 3.4-5.0 N GLOBULIN (test code = GLOB) 3.6 gram/dL 2.7-4.2 N ALBUMIN/GLOBULIN RATIO (test code = A/G) 1.1 0.75-1.50 N BILIRUBIN TOTAL (test code = BILT) 0.60 mg/dL 0.0-1.0 N BILIRUBIN DIRECT (test code = BILD) 0.10 mg/dL 0.0-0.20 N SGOT/AST (test code = AST) 23 IUnit/L 15-37 N SGPT/ALT (test code = ALT) 26 IUnit/L 12-78 N ALKALINE PHOSPHATASE TOTAL (test code = ALKP) 100 IUnit/L 45-117 N Note change in reference range due to change in reagent. B 12/23/18 1217PROTHROMBIN [id number] 12:37:00* Test Item Value Reference Range Interpretation Comments PROTHROMBIN TIME PATIENT (test code = PTP) 11.1 seconds 9.0-14.0 N INTERNATIONAL NORMAL RATIO (test code = INR) 0.9 0.8-1.2 N The therapeutic range for oral anticoagulant therapy formost indications is an international normalized ratio (INR)of between 2.0 and 3.0. The recommended therapeutic INRrange for various clinical situations is listed below: Clinical Situation INR range Pulmonary e mbolism treatment (2.0-3.0)Venous thrombosis treatmentVenous thrombosis prophylaxis (high risk surgery)Prevention of systemic embolism from: Acute myocardial infarction Valvular heart disease Atrial fibrillation Mechanical prosthetic heart valves (2.5-3.5) 12/23/18 1219IS PATIENT ON ANTICOAGULANTS? YLIST ANTICOAGULANTS PLAVIX THROMBOPLASTIN TIME [id number] 12:37:00* Test Item Value Reference Range Interpretation Comments THROMBOPLASTIN TIME PARTIAL (test code = PTT) 31.9 seconds 25.0-36. 5 N 12/23/189IS PATIENT ON ANTICOAGULANTS? YLIST ANTICOAGULANTS PLAVIXBASIC METABOLIC [id number] 12:35:00* Test Item Value Reference Range Interpretation Comments SODIUM (test code = NA) 140 mmol/L 136-145 N POTASSIUM (test code = K) 4.9 mmol/L 3.5-5.1 N CHLORIDE (test code = CL) 106.0 mmol/L 98-107 N CARBON DIOXIDE (test code = CO2) mmol/L 21-32 ANION GAP (test code = GAP) 10-20 GLUCOSE (test code = GLU) mg/dL 74-106 BLOOD UREA NITROGEN (test code = BUN) mg/dL 7-18 GLOMERULAR FILTRATION RATE (test code = GFR) mL/min >=60 CREATININE (test code = CREAT) mg/dL 0.7-1.3 BUN/CREATININE RATIO (test code = BUN/CREA) 10-20 CALCIUM (test code = CA) mg/dL 8.5-10.1 B 12/23/18 1217HEPATIC FUNCTION [id number] 12:35:00* Test Item Value Reference Range Interpretation Comments TOTAL PROTEIN (test code = PROT) gram/dL 6.4-8.2 ALBUMIN (test code = ALB) g/dL 3.4-5.0 GLOBULIN (test code = GLOB) gram/dL 2.7-4.2 ALBUMIN/GLOBULIN RATIO (test code = A/G) 0.75-1.50 BILIRUBIN TOTAL (test code = BILT) mg/dL 0.0-1.0 BILIRUBIN DIRECT (test code = BILD) mg/dL 0.0-0.20 SGOT/AST (test code = AST) IUnit/L 15-37 SGPT/ALT (test code = ALT) IUnit/L 12-78 ALKALINE PHOSPHATASE TOTAL (test code = ALKP) IUnit/L 45-117 B 12/23/18 1217CBC W/AUTO [id number] 12:31:00* Test Item Value Reference Range Interpretation Comments WHITE BLOOD CELL (test code = WBC) 7.3 K/mm3 4.5-12.5 N RED BLOOD CELL (test code = RBC) 5.21 mill/mm3 4.0-5.8 N HEMOGLOBIN (test code = HGB) 14.7 gram/dL 13.0-17.5 N HEMATOCRIT (test code = HCT) 45.0 % 42.0-52.0 N MEAN CELL VOLUME (test code = MCV) 86.4 fL 80-98 N MEAN CELL HGB (test code = MCH) 28.2 picogram 27.0-33.0 N MEAN CELL HGB CONCETRATION (test code = MCHC) 32.7 gram/dL 33.0-36. 0 L RED CELL DISTRIBUTION WIDTH (test code = RDW) 13.2 % 11.6-16. 2 N RED CELL DISTRIBUTION WIDTH SD (test code = RDW-SD) 40.9 fL 37 .0-51.0 N PLATELET COUNT (test code = PLT) 176 K/mm3 150-450 N MEAN PLATELET VOLUME (test code = MPV) 9.3 fL 6.7-11.0 N NEUTROPHIL % (test code = NT%) 57.3 % 39.0-69.0 N IMMATURE GRANULOCYTE % (test code = IG%) 0.7 % 0.0-5.0 N LYMPHOCYTE % (test code = LY%) 29.2 % 25.0-55.0 N MONOCYTE % (test code = MO%) 8.6 % 0.0-10.0 N EOSINOPHIL % (test code = EO%) 3.7 % 0.0-5.0 N BASOPHIL % (test code = BA%) 0.5 % 0.0-1.0 N NUCLEATED RBC % (test code = NRBC%) 0.0 % 0-0 N NEUTROPHIL # (test code = NT#) 4.20 K/mm3 1.8-7.7 N IMMATURE GRANULOCYTE # (test code = IG#) 0.05 x10 3/uL 0-0.03 H LYMPHOCYTE # (test code = LY#) 2.14 K/mm3 1.0-5.0 N MONOCYTE # (test code = MO#) 0.63 K/mm3 0-0.8 N EOSINOPHIL # (test code = EO#) 0.27 K/mm3 0.0-0.5 N BASOPHIL # (test code = BA#) 0.04 K/mm3 0.0-0.2 N NUCLEATED RBC # (test code = NRBC#) 0.00 K/mm3 0.0-0.1 N MANUAL DIFF REQUIRED (test code = MDIFF) NO CBC W/AUTO [id number] 12:23:00* Test Item Value Reference Range Interpretation Comments WHITE BLOOD CELL (test code = WBC) K/mm3 4.5-12.5 RED BLOOD CELL (test code = RBC) mill/mm3 4.0-5.8 HEMOGLOBIN (test code = HGB) 14.7 gram/dL 13.0-17.5 N HEMATOCRIT (test code = HCT) 45.0 % 42.0-52.0 N MEAN CELL VOLUME (test code = MCV) fL 80-98 MEAN CELL HGB (test code = MCH) picogram 27.0-33.0 MEAN CELL HGB CONCETRATION (test code = MCHC) gram/dL 33.0-36. 0 RED CELL DISTRIBUTION WIDTH (test code = RDW) % 11.6-16. 2 RED CELL DISTRIBUTION WIDTH SD (test code = RDW-SD) fL 37 .0-51.0 PLATELET COUNT (test code = PLT) K/mm3 150-450 MEAN PLATELET VOLUME (test code = MPV) fL 6.7-11.0 NEUTROPHIL % (test code = NT%) % 39.0-69.0 IMMATURE GRANULOCYTE % (test code = IG%) % 0.0-5.0 LYMPHOCYTE % (test code = LY%) % 25.0-55.0 MONOCYTE % (test code = MO%) % 0.0-10.0 EOSINOPHIL % (test code = EO%) % 0.0-5.0 BASOPHIL % (test code = BA%) % 0.0-1.0 NEUTROPHIL # (test code = NT#) K/mm3 1.8-7.7 LYMPHOCYTE # (test code = LY#) K/mm3 1.0-5.0 MONOCYTE # (test code = MO#) K/mm3 0-0.8 EOSINOPHIL # (test code = EO#) K/mm3 0.0-0.5 BASOPHIL # (test code = BA#) K/mm3 0.0-0.2 - XR CHEST 2 [id number] 11:50:00 FAX: Amy Baron MD [phone] [place]: O St: PRE FAX: Martin Morales [phone] Name: LINA DELGADO [facility] : 1955 Age/S: 63/M [address] Unit #: [id number] Loc: [place] [address] Phys: Martin Caldwell MD Acct: [id number] Dis Date: Status: PRE SDC PHONE #: [phone] Exam Date: 12/23/2018 1138 FAX #: [phone] Reason: PRE OP EXAMS: CPT CODE: [id number] XR CHEST 2 V 94606 HISTORY: Preop. COMPARISON: October 14, 2017. AP and lateral view of the chest: No acute infiltrates, effusion or congestion COPD with upper lobe predominance. Scarring. Cardiac silhouette is mildly enlarged. DJD of the dorsal spine. IMPRESSION: No acute infiltrates, effusion or congestion. at 1150 Reported and signed by: Fadi Varner M.D. CC: Amy Pelaez MD; Martin Caldwell MD Technologist: Cesar HUNTER(R) Trnscrd Date/Time/By: 12/23/2018 (7035) : By: [email or web address] Orig Print D/T: S: 12/23/2018 (6900) PAGE [address] ABDOMEN/PELVIS [id number] 14:37:00 [place] [address] Patient Name: LINA DELGADO MR #: [id number] : 1955 Age/Sex: 63/M Req #: [id number] Adm Physician: Ordered by: BREONNA PELAEZ MD Report #: [id number] Location: CT Room/Bed: Procedure: [id number] CT/C T ABDOMEN/PELVIS W Exam Date: 09/22/18 Exam Time: 14 10 REPORT STATUS: Signed EXAM: C T Abdomen and Pelvis WITH contrast INDICATION: Generalized abdominal pain. A bdominal distention. COMPARISON: None. TECHNIQUE: Abdomen and pelvis were sc anned utilizing a multidetector helical scanner from the lung base to the pubi c symphysis after administration of IV contrast. Coronal and sagittal reformat ions were obtained. Routine protocol was performed. Scan was performed when du ring portal venous phase. IV CONTRAST: 150 mL of Omnipaque 300 ORAL CONTRAST: Water RADIATION DOSE: Total DLP: 694.78 mGy*cm Estimated effective dose: (DLP x 0.015 x size factor) mSv COMPLICATIONS: None FINDINGS: LINES and TUBES: None. LOWER THORAX: Unremarkable HEPATOBILIARY: No focal hepatic lesions. M inimal central intrahepatic biliary dilatation. GALLBLADDER: Not visualiz ed. SPLEEN: No splenomegaly. PANCREAS: No focal masses or ductal dila tation. ADRENALS: No adrenal nodules KIDNEYS/URETERS: Kidneys en tierra symmetrically. No hydronephrosis. No cystic or solid mass lesions. 2 m m nonobstructing calculus in the upper pole of the right kidney on sagittal im age 53. Mild bilateral cortical renal scarring. GI TRACT: No bowel dilatati on to suggest obstruction. There is asymmetric wall thickening of the lower re ctum with mild hyperenhancement; wall thickness measures up to 1.0 cm at 12:00 position on image 82 series 2; mild perirectal fat stranding and mildly incre ased vasculature. A few scattered colonic diverticula without CT evidence of a cute diverticulitis. Appendix is not identified consistent with status post ap pendectomy. PELVIC ORGANS/BLADDER: 5 mm diverticulum off the posterior righ t wall of the urinary bladder on image 79 series 2. LYMPH NODES: No lymph adenopathy. VESSELS: There is mild atherosclerotic disease in the aorta and major arterial branches. PERITONEUM / RETROPERITONEUM: No free air or fl uid. Mildly increased of the density of the root of the mesentery fat associat ed with mildly prominent mesenteric lymph nodes is a nonspecific finding, poss ibly mild "saul mesentery ". BONES: There are degenerative changes in th e lumbar spine. Lower thoracic DISH. SOFT TISSUES: Left para-midline lower abdominal wall hernia with aperture estimated at 2.0 cm on image 56 series 2. The hernia sac measures 4.9 cm in length, and contains a keumo-li-ypaqfspl vol ume of mesenteric fat. IMPRESSION: 1. Mild colonic diverticulosis witho ut acute diverticulitis. 2. Mild lower rectal wall thickening is nonspecifi c; suggest further evaluation with endoscopic evaluation. 3. Small left p andree midline lower abdominal ventral hernia containing mesenteric fat only. No herniated bowel loops. 4. Status post cholecystectomy. No significant bilia ry dilatation. Signed by: Dr. Morris Corona M.D. on 09/22/2018 3:09 PM Dictated By: LIZ CORONA MD, MD 08 Transcribed By: AMIRA on 09/22/181508 MANAGER MOTOR Y TO: BREONNA PELAEZ MD White Blood [id number] 09:43:00* Test Item Value Reference Range Interpretation Comments White Blood Count (test code = 6690-2) 8.27 4.8-10.8 [facility] [id number] 09:43:00* Test Item Value Reference Range Interpretation Comments Red Blood Count (test code = 789-8) 5.23 4.3-5.7 [facility]emoglobin2018-04-26 09:43:00* Test Item Value Reference Range Interpretation Comments Hemoglobin (test code = 15629-5) 14.7 14.0-18.0 [facility]ematocrit2018-04-26 09:43:00* Test Item Value Reference Range Interpretation Comments Hematocrit (test code = 4544-3) 43.4 38.2-49.6 [facility]ressMean Corpuscular [id number] 09:43:00* Test Item Value Reference Range Interpretation Comments Mean Corpuscular Volume (test code = 787-2) 83.0 81-99 [facility]ressMean Corpuscular [id number] 09:43:00* Test Item Value Reference Range Interpretation Comments Mean Corpuscular Hemoglobin (test code = 785-6) 28.1 28-32 [facility] 2017-12-23 09:43:00* Test Item Value Reference Range Interpretation Comments Mean Corpuscular Hemoglobin Concent (test code = 786-4) 33.9 31-35 [facility]ress[facility] Cell Distribution [id number] 09:43:00* Test Item Value Reference Range Interpretation Comments Red Cell Distribution Width (test code = 08958-4) 13.4 11.7 -14.4 [facility]ressPlatelet [id number] 09:43:00* Test Item Value Reference Range Interpretation Comments Platelet Count (test code = 777-3) 151 140-360 [facility]ressNeutrophils (%) (Auto)2017-12-23 09:43:00 * Test Item Value Reference Range Interpretation Comments Neutrophils (%) (Auto) (test code = 58715-1) 63.2 38.7-80.0 [facility]ressLymphocytes (%) (Auto)2017-12-23 09:43:00 * Test Item Value Reference Range Interpretation Comments Lymphocytes (%) (Auto) (test code = 736-9) 23.7 18.0-39.1 [facility]ress[facility]ocytes (%) (Auto)2017-12-23 09:43:00* Test Item Value Reference Range Interpretation Comments Monocytes (%) (Auto) (test code = 5905-5) 9.2 4.4-11.3 [facility]ress[facility]osinophils (%) (Auto)2017-12-23 09:43:00 * Test Item Value Reference Range Interpretation Comments Eosinophils (%) (Auto) (test code = 713-8) 3.3 0.0-6.0 [facility]ress[facility]ophils (%) (Auto)2017-12-23 09:43:00* Test Item Value Reference Range Interpretation Comments Basophils (%) (Auto) (test code = 706-2) 0.4 0.0-1.0 [facility]ressIM GRANULOCYTES %2017-12-23 09:43:00* Test Item Value Reference Range Interpretation Comments IM GRANULOCYTES % (test code = IM GRANULOCYTES %) 0.2 0.0- 1.0 [facility]ressNeutrophils # (Auto)2017-12-23 09:43:00* Test Item Value Reference Range Interpretation Comments Neutrophils # (Auto) (test code = 751-8) 5.2 2.1-6.9 [facility]ressLymphocytes # (Auto)2017-12-23 09:43:00* Test Item Value Reference Range Interpretation Comments Lymphocytes # (Auto) (test code = 63233-5) 2.0 1.0-3.2 [facility]ress[facility]ocytes # (Auto)2017-12-23 09:43:00* Test Item Value Reference Range Interpretation Comments Monocytes # (Auto) (test code = 742-7) 0.8 0.2-0.8 [facility]ress[facility]osinophils # (Auto)2017-12-23 09:43:00* Test Item Value Reference Range Interpretation Comments Eosinophils # (Auto) (test code = 711-2) 0.3 0.0-0.4 [facility]ress[facility]ophils # (Auto)2017-12-23 09:43:00* Test Item Value Reference Range Interpretation Comments Basophils # (Auto) (test code = 704-7) 0.0 0.0-0.1 [facility]ressAbsolute Immature Granulocyte (auto 2017-12-23 09:43:00* Test Item Value Reference Range Interpretation Comments Absolute Immature Granulocyte (auto (alen t code = Absolute Immature Granulocyte (auto) 0.02 0-0.1 [facility]ress[facility] SP[facility] LUMBAR WO [facility] [address] [place] [address] Patient Name: LINA DELGADO MR #: [id number] : 1955 Age/Sex: 62/M Req #: [id number] Adm Physician: Ordered by: AMY PELAEZ MD Report #: [id number] Location: MRI Room/Bed: Procedure: [id number] MRI/MRI SPINE LUMBAR WO Exam Date: Exam Time: REPORT STATUS: Signed His tory: Low back pain and around the abdomen. Comparison studies: None Tech nique: Sagittal, coronal and axial T2 , sagittal T1 and IR, axial spin densi ty oblique. Intravenous contrast: None Findings: Number of lumbar vertebral bodies:5 Alignment: Normal lordosis.No scoliosis. Soft tissues: No T2 hyperintense inflammatory changes. Paraspinal muscles: No signal abnorm alities. No atrophy. Lower thoracic cord:Normal in signal and morphology. Th e tip of the conus is at L1-L2. Cauda equina: No masses. No arachnoiditis. Vertebrae: Normal in height and signal intensity. No compression fractur es, infection or neoplasm. Degenerative changes: Disc degeneration with l oss of T2 signal from T11 through L1 with patent canal and foramina L1-L2 : No abnormalities. L2-L3: No abnormalities. L3-L4: Disc degener ation with loss of T2 signal. Patent canal and foramina. L4-L5: Disc dege neration with loss of T2 signal. Diffuse disc bulge and mild bilateral facet h ypertrophy with grossly patent canal and mild bilateral foraminal narrowing. L5-S1: Disc degeneration with loss of T2 signal. Moderate bilateral facet hypertrophy without significant canal stenosis or foraminal narrowing. Ad ditional findings: None IMPRESSION: Mild disc degeneration and mild to moderate facet hypertrophy the lower lumbar spine without significant canal stenosis or foraminal narrowing. Signed by: DR Oscar Fleming M.D. on 10/30/2017 3:25 PM Dictated By: OSCAR BOBO MD Electronically Si gned By: OSCAR BOBO MD on 10/30/17 1525 Transcribed By: AMIRA on 11/14 1525 COPY TO: AMY PELAEZ MD
[2020-06-06] MEDS ORDERED: ACETAMINOPHEN 325 MG TAB PO ONE (13:45)
[2020-06-06] MEDS ORDERED: ACETAMINOPHEN 325 MG TAB ONE (13:48)
--- NOTE | 2020-06-06 14:12 | Emergency Department Note ---
History of Present Illnes History of Present Illness Chief Complaint: COVID PUI History of Present Illness This is a 65 year old male fever myagia dysuria, treated with cipro for uti. Onset (how long ago): day(s) (2) Location: back Quality: myalgia Radiation: Denies non-radiation, Denies back, Denies neck, Denies extremity, Denies abdomen, Denies periumbilical, Denies flank, Denies proximal, Denies distal, Denies other Severity: moderate Onset quality: gradual Duration (how long): day(s) (2) Timing of current episode: constant Progression: unchanged Chronicity: new Context: Denies recent illness, Denies recent surgery, Denies recent immobilization, Denies recent travel, Denies trauma/injury, Denies new medications, Denies hx of DVT/PE, Denies non-compliance w/ medications, Denies other Relieving factors: none Exacerbating factors: none Associated symptoms: Denies denies other symptoms, Denies confusion, Denies chest pain, Denies cough, Denies diaphoresis, Denies fever/chills, Denies headaches, Denies loss of appetite, Denies malaise, Denies nausea/vomiting, Denies rash, Denies seizure, Denies shortness of breath, Denies syncope, Denies weakness, Denies other Treatments prior to arrival: none Past Medical/Family History Physician Review I have reviewed the patient's past medical and family history. Any updates have been documented here. Past Medical History Other Medical History: HTN, HEP C Other Surgery: LIVER TRANSPLANT Social History Smoking Cessation: Never Smoker Alcohol Use: Occasional Other Last Tetanus: 1999 Review of Systems Review of Systems Constitutional: Reports fever EENTM: Reports no symptoms Cardiovascular: Reports no symptoms Respiratory: Reports no symptoms Gastrointestinal: Reports no symptoms Genitourinary: Reports no symptoms Musculoskeletal: Reports no symptoms Integumentary: Reports no symptoms Neurological: Reports no symptoms Psychological: Reports no symptoms Endocrine: Reports no symptoms Hematological/Lymphatic: Reports no symptoms Physical Exam Related Data Allergies: Coded Allergies: No Known Drug Allergies (Verified Allergy, Mild, 02/03/11) Vital signs reviewed: Yes Physical Exam CONSTITUTIONAL Constitutional: Present well-developed, Present well-nourished HENT HENT: Present normocephalic, Present atraumatic, Present oropharynx clear/moist, Present nose normal HENT L/R: Present left ext ear normal, Present right ext ear normal EYES Eyes: Reports PERRL, Reports conjunctivae normal NECK Neck: Present ROM normal PULMONARY Pulmonary: Present effort normal, Present breath sounds normal CARDIOVASCULAR Cardiovascular: Present regular rhythm, Present heart sounds normal, Present capillary refill normal, Present normal rate GASTROINTESTINAL Abdominal: Present soft, Present nontender, Present bowel sounds normal GENITOURINARY Genitourinary: Present exam deferred SKIN Skin: Present warm, Present dry MUSCULOSKELETAL Musculoskeletal: Present ROM normal NEUROLOGICAL Neurological: Present alert, Present oriented x 3, Present no gross motor or sensory deficits PSYCHOLOGICAL Psychological: Present mood/affect normal, Present judgement normal Results Laboratory Lab results reviewed: Yes Assessment & Plan Medical Decision Making MDM flu uti Reassessment Reassessment time: 14:11 Reassessment better Assessment & Plan Final Impression: (1) Acute pyelonephritis (2) Flu (3) Fever Depart Disposition: HOME, SELF-alf Meds Reported Medications Tacrolimus (PROGRAF) 1 Mg Cap, 1 MG PO BID 10/06/18 Tramadol Hcl (ULTRAM) 50 Mg Tablet, 50 MG PO PRN, TAB 12/28/17 Hydrocodone Bit/Acetaminophen (NORCO 10-325 TABLET) 1 Each Tablet, 1 TAB PO DAILY 11/30/16 Aspirin (ASPIR 81) 81 Mg Tablet.dr, 1 TAB PO DAILY 11/30/16 Mu-Vits-Min Th/Lycopene/Lutein (CENTRUM SILVER TABLET) 1 Each Tablet, 1 TAB PO DAILY 11/30/16 Ginkgo Biloba (GINKGO BILOBA) 60 Mg Capsule, 1 CAP PO DAILY 11/30/16 Dixon-3 Fatty Acids (FISH OIL) 300 Mg Capsule, 300 MG PO DAILY 11/30/16 Metoprolol Tartrate (METOPROLOL TARTRATE) 25 Mg Tablet, 25 MG PO DAILY, TAB 11/30/16 Omeprazole (OMEPRAZOLE) 40 Mg Capsule.dr, 40 MG PO DAILY 11/30/16 Clopidogrel Bisulfate (CLOPIDOGREL) 75 Mg Tablet, 75 MG PO DAILY, #30 TAB 11/30/16 Atorvastatin Calcium (ATORVASTATIN CALCIUM) 20 Mg Tablet, 20 MG PO HS, #30 TAB 11/30/16 Medications in the ED Acetaminophen 650 mg ONCE ONCE PO Last administered on 06/06/20at 13:42; Admin Dose 650 MG; Start 06/06/20 at 13:45; Stop 06/06/20 at 13:46; Status DC Acetaminophen 650 mg STK-MED ONCE .ROUTE ; Start 06/06/20 at 13:48; Stop 06/06/20 at 13:45; Status DC MADELEINE GLASGOW MD Jun 06, 2020 14:11
[2020-06-06] MEDS ORDERED: AUGMENTIN 500-1 EACH PO (14:13)
[2020-06-06] MEDS ORDERED: TAMIFLU75 MG PO (14:13)
[2020-06-06] MEDS ORDERED: CEFTRIAXONE SOD 1 GM VIAL IV NR (14:15)
--- NOTE | 2020-06-06 14:28 | NUR ---
Pt currently receiving IV antibiotic, will be discharged once completed.
[2020-06-06] MEDS ORDERED: CEFTRIAXONE SOD 1 GM/NS 50 ML 50 ML IV ONE (14:33)
== END 2020-06-06 14:49 | disposition home or self-care (01) ==
LOC: FSED 13:00
DX: R50.9 Fever, unspecified (principal); J11.1 Influenza due to unidentified influenza virus with other respiratory manifestations; N10 Acute pyelonephritis; I10 Essential (primary) hypertension; B19.20 Unspecified viral hepatitis C without hepatic coma; Z94.4 Liver transplant status; Z11.59 Encounter for screening for other viral diseases
CPT/HCPCS: 80048; 80076; 81003; 83518; 85025; 87086; 87186; 87400; 99283; J0696; U0002

== ENCOUNTER → 2020-08-12 | Outpatient (CLI) | payer MEDICARE ==
[~2020-08-12] MED LIST changes: +AUGMENTIN 500-1 EACH PO; +TAMIFLU75 MG PO
== END ==
LOC: CT 07:25
PROVIDERS: ATTEND Urology
DX: Z87.442 Personal history of urinary calculi (principal); K43.9 Ventral hernia without obstruction or gangrene
CPT/HCPCS: 74176

== ENCOUNTER 2020-08-28 16:37 | Emergency (ER) | payer MEDICARE ==
[~2020-08-28] VITALS: Ht 160 cm; Wt 86.6 kg
[2020-08-28] MEDS ORDERED: KETOROLAC TROMETHAMINE 60 MG/2 ML VIAL IM ONE (17:00)
== END 2020-08-28 18:55 | disposition home or self-care (01) ==
LOC: FSED 17:00
DX: R10.11 Right upper quadrant pain (principal); S39.011A Strain of muscle, fascia and tendon of abdomen, initial encounter; X50.1XXA Overexertion from prolonged static or awkward postures, initial encounter; Y92.008 Other place in unspecified non-institutional (private) residence as the place of occurrence of the external cause; Z94.4 Liver transplant status; I10 Essential (primary) hypertension; E78.5 Hyperlipidemia, unspecified; I25.10 Atherosclerotic heart disease of native coronary artery without angina pectoris; B19.20 Unspecified viral hepatitis C without hepatic coma
CPT/HCPCS: 74176; 81003; 99283; J1885

== ENCOUNTER → 2021-11-05 | Day surgery (SDC) | payer MEDICARE ==
[2021-11-03 10:15] LABS: BASOPHILS % 0.5 % (0.0-1.0); EOSINOPHILS # (AUTO) 0.3 (0.0-0.4); HEMATOCRIT 43.9 % (38.2-49.6); HEMOGLOBIN 14.4 g/dL (14.0-18.0); LYMPHOCYTES # (AUTO) 1.6 (1.0-3.2); LYMPHOCYTES % 24.5 % (18.0-39.1); MEAN CORPUSCULAR HEMOGLOBIN 27.8 pg (28-32); MEAN CORPUSCULAR HGB CONC 32.8 g/dL (31-35); MEAN CORPUSCULAR VOLUME 84.7 fL (81-99); MONOCYTES # (AUTO) 0.7 (0.2-0.8); MONOCYTES % 11.1 % (4.4-11.3); NEUTROPHILS # (AUTO) 3.8 (2.1-6.9); NEUTROPHILS % 59.4 % (38.7-80.0); PLATELET COUNT 152 x10e3/uL (140-360); RED BLOOD COUNT 5.18 x10e6/uL (4.3-5.7); RED CELL DISTRIBUTION WIDTH 14.4 % (11.7-14.4)
[2021-11-03 10:33] LABS: INR 0.97; PROTHROMBIN TIME 13.8 seconds (11.9-14.5)
[2021-11-03 10:34] LABS: PARTIAL THROMBOPLASTIN TIME 31.7 seconds (23.8-35.5)
[2021-11-03 10:35] LABS: ALBUMIN 3.5 g/dL (3.5-5.0); ALBUMIN/GLOBULIN RATIO 0.9 (0.8-2.0); ANION GAP 10.5 mmol/L (8-16); CALCIUM 9.5 mg/dL (8.4-10.2); CREATININE, SERUM 0.94 mg/dL (0.72-1.25); POTASSIUM 4.5 mmol/L (3.5-5.1)
[~2021-11-05] MED LIST changes: +FENTANYL CITRATE/PF 100MCG/2 ML INJ ONE; +HYOSCYAMINE SULFATE 0.5 MG/ML INJ ONE; +LIDOCAINE HCL 2% LOCAL INJ 5 ML SDV VIAL INJ ONE; +MIDAZOLAM HCL 2 MG/2 ML VIAL ONE; +PROPOFOL IV EMULSION 10 MG/ML 20 ML VIAL ONE
[2021-11-05 15:50] VITALS: BP 119/88
== END | disposition home or self-care (01) ==
LOC: OR 11:52
PROVIDERS: ATTEND Internal Medicine Gastroenterology
DX: Z09 Encounter for follow-up examination after completed treatment for conditions other than malignant neoplasm (principal); K63.5 Polyp of colon; K57.30 Diverticulosis of large intestine without perforation or abscess without bleeding; K29.60 Other gastritis without bleeding; K21.9 Gastro-esophageal reflux disease without esophagitis; I25.10 Atherosclerotic heart disease of native coronary artery without angina pectoris; I25.2 Old myocardial infarction; I10 Essential (primary) hypertension; E78.6 Lipoprotein deficiency; Z01.810 Encounter for preprocedural cardiovascular examination; Z01.812 Encounter for preprocedural laboratory examination; Z20.822 Contact with and (suspected) exposure to COVID-19; Z79.02 Long term (current) use of antithrombotics/antiplatelets; Z79.82 Long term (current) use of aspirin; Z79.899 Other long term (current) drug therapy; Z68.41 Body mass index [BMI] 40.0-44.9, adult; Z94.4 Liver transplant status
CPT/HCPCS: 36415; 45384; 45385; 80053; 85025; 85610; 85730; 93005; J2250; J3010; U0002; 45378; J1980; J2001

== ENCOUNTER → 2022-10-12 | Outpatient (CLI) | payer MEDICARE ==
[~2022-10-12] MED LIST changes: -FENTANYL CITRATE/PF 100MCG/2 ML INJ ONE; -HYOSCYAMINE SULFATE 0.5 MG/ML INJ ONE; -LIDOCAINE HCL 2% LOCAL INJ 5 ML SDV VIAL INJ ONE; -MIDAZOLAM HCL 2 MG/2 ML VIAL ONE; -PROPOFOL IV EMULSION 10 MG/ML 20 ML VIAL ONE
== END ==
LOC: DX 11:54
PROVIDERS: ATTEND Internal Medicine
DX: M85.88 Other specified disorders of bone density and structure, other site (principal)
CPT/HCPCS: 77080

== ENCOUNTER → 2023-09-15 | Outpatient (REF) | payer MEDICARE | LOC: US 08:39 | PROVIDERS: ATTEND Nurse Practitioner | DX: R10.84 Generalized abdominal pain (principal); K29.60 Other gastritis without bleeding | CPT/HCPCS: 76700; 76857 ==

== ENCOUNTER 2024-06-25 09:51 | Observation (INO) | payer MEDICARE ==
[~2024-06-25] VITALS: Ht 162.6 cm; Wt 93.6 kg
[2024-06-25] MEDS: ONDANSETRON HCL INJ 2MG/ML 2ML 2 MG/ML VIAL IV STA (10:35)
[2024-06-25] MEDS: SODIUM CHLORIDE 0.9% 1000ML 1,000 ML IV ONE (10:36)
[2024-06-25] MEDS ORDERED: ONDANSETRON HCL INJ 2MG/ML 2ML 2 MG/ML VIAL IV PRN (12:00)
[2024-06-25] MEDS: FAMOTIDINE 20 MG TAB PO SCH (12:26)
[2024-06-25] MEDS: ACETAMINOPHEN 325 MG TAB PO ONE (16:40)
[2024-06-25 17:06] VITALS: PULSE 88; RESP 20; TEMP 99.2
[2024-06-25 18:04] VITALS: BP 138/71; PULSE 93; RESP 18; TEMP 99.4; O2SAT 99
[2024-06-25] MEDS ORDERED: TRAMADOL HCL 50 MG TAB PO PRN (18:45)
[2024-06-25 20:00] VITALS: BP 130/76; PULSE 88; RESP 20; TEMP 99; O2SAT 97
[2024-06-25] MEDS: TACROLIMUS 1 MG CAP PO SCH (20:07)
[2024-06-25] MEDS: SODIUM CHLORIDE 0.9% 1000ML 1,000 ML IV SCH (20:07)
[2024-06-25] MEDS ORDERED: ACETAMINOPHEN 325 MG TAB PO PRN (22:30)
[2024-06-25 23:25] VITALS: BP 130/76; PULSE 88; RESP 20; TEMP 99; O2SAT 97
[2024-06-26] VITALS: BP 151/87; PULSE 86; RESP 17; TEMP 97.7; O2SAT 98
[2024-06-26] MEDS ORDERED: FLOMAX0.4 MG PO (00:36)
[2024-06-26] MEDS ORDERED: AMITRIPTYLINE H25 MG PO (00:36)
[2024-06-26] MEDS ORDERED: LYRICA100 MG PO (00:36)
[2024-06-26] MEDS ORDERED: ARICEPT10 MG PO (00:36)
[2024-06-26] MEDS ORDERED: ARICEPT5 MG PO (00:36)
[2024-06-26] MEDS ORDERED: METHOCARBAMOL750 MG PO (00:36)
[2024-06-26] MEDS ORDERED: TRAZODONE HCL50 MG (00:36)
[2024-06-26] MEDS ORDERED: HYDROCODON-ACE1 EA11 (00:36)
[2024-06-26] MEDS ORDERED: MEMANTINE HCL E28 MG (00:36)
[2024-06-26 04:00] VITALS: BP 142/86; PULSE 90; RESP 18; TEMP 98.2; O2SAT 100
[2024-06-26 06:23] LABS: CREATINE KINASE 206 IU/L (30-200)
[2024-06-26 06:37] LABS: TROPONIN I < 0.001 ng/mL (0-0.300)
[2024-06-26 06:56] LABS: CHOL/HDL RATIO 2.8 (3.9-4.7); MAGNESIUM 1.7 MG/DL (1.3-2.1); PHOSPHORUS 1.5 MG/DL (2.3-4.7)
[2024-06-26 08:00] VITALS: BP 142/86; PULSE 90; RESP 18; TEMP 98.2; O2SAT 100
[2024-06-26 08:17] VITALS: BP 135/79; PULSE 89; RESP 17; TEMP 97.9; O2SAT 98
[2024-06-26] MEDS: METOPROLOL SUCCINATE 50 MG TAB XL PO SCH (08:25)
[2024-06-26] MEDS: CLOPIDOGREL BISULFATE 75 MG TAB PO SCH (08:25)
[2024-06-26] MEDS: PANTOPRAZOLE SOD 40 MG TABEC PO SCH (08:25)
[2024-06-26] MEDS: ASPIRIN 81 MG CHEW TAB PO SCH (08:26)
[2024-06-26 10:43] LABS: BASOPHILS % 0.7 % (0.0-1.0); EOSINOPHILS # (AUTO) 0.1 (0.0-0.4); EOSINOPHILS % 2.2 % (0.0-6.0); HEMATOCRIT 41.8 % (38.2-49.6); HEMOGLOBIN 13.1 g/dL (14.0-18.0); LYMPHOCYTES # (AUTO) 1.1 (1.0-3.2); LYMPHOCYTES % 24.6 % (18.0-39.1); MEAN CORPUSCULAR HEMOGLOBIN 28.4 pg (28-32); MEAN CORPUSCULAR HGB CONC 31.3 g/dL (31-35); MEAN CORPUSCULAR VOLUME 90.5 fL (81-99); MONOCYTES # (AUTO) 0.7 (0.2-0.8); MONOCYTES % 15.8 % (4.4-11.3); NEUTROPHILS # (AUTO) 2.5 (2.1-6.9); NEUTROPHILS % 55.6 % (38.7-80.0); PLATELET COUNT 124 x10e3/uL (140-360); RED BLOOD COUNT 4.62 x10e6/uL (4.3-5.7); RED CELL DISTRIBUTION WIDTH 14.6 % (11.7-14.4); WHITE BLOOD COUNT 4.48 x10e3/uL (4.8-10.8)
[2024-06-26 11:03] LABS: ANION GAP 12.8 mmol/L (8-16); CREATININE, SERUM 0.81 mg/dL (0.72-1.25); POTASSIUM 3.8 mmol/L (3.5-5.1)
[2024-06-26] MEDS ORDERED: CEFDINIR300 MG PO (11:13)
[2024-06-26 11:40] VITALS: BP 166/87; PULSE 82; RESP 18; TEMP 97.5; O2SAT 100
[2024-06-26] MEDS ORDERED: ONDANSETRON HCL 4 MG ORAL DISINTEGRATING TAB PO PRN (12:15)
[2024-06-26] MEDS: POTASSIUM PHOSPHATE 30 MM in SODIUM CHLORIDE 0.9% 250ML 250 ML IV ONE (13:00)
[2024-06-26 17:09] LABS: CREATINE KINASE 285 IU/L (30-200)
[2024-06-26 17:20] LABS: TROPONIN I < 0.001 ng/mL (0-0.300)
== END 2024-06-26 17:21 | disposition home or self-care (01) ==
LOC: FSED 09:58 → ERHOLD 12:00 → MED/SURG2 17:55
PROVIDERS: ADMIT Internal Medicine; ATTEND Internal Medicine
DX: A08.4 Viral intestinal infection, unspecified (principal); N39.0 Urinary tract infection, site not specified; B96.20 Unspecified Escherichia coli [E. coli] as the cause of diseases classified elsewhere; E86.0 Dehydration; R07.9 Chest pain, unspecified; D61.818 Other pancytopenia; K57.30 Diverticulosis of large intestine without perforation or abscess without bleeding; I10 Essential (primary) hypertension; I25.10 Atherosclerotic heart disease of native coronary artery without angina pectoris; I25.2 Old myocardial infarction; Z95.5 Presence of coronary angioplasty implant and graft; E78.00 Pure hypercholesterolemia, unspecified; K21.9 Gastro-esophageal reflux disease without esophagitis; J44.9 Chronic obstructive pulmonary disease, unspecified; Z87.891 Personal history of nicotine dependence; F10.11 Alcohol abuse, in remission; E66.9 Obesity, unspecified; Z68.35 Body mass index [BMI] 35.0-35.9, adult; M17.10 Unilateral primary osteoarthritis, unspecified knee; M47.9 Spondylosis, unspecified; Z94.4 Liver transplant status; Z86.19 Personal history of other infectious and parasitic diseases; Z79.899 Other long term (current) drug therapy; Z79.02 Long term (current) use of antithrombotics/antiplatelets; Z79.82 Long term (current) use of aspirin
CPT/HCPCS: 36415; 74176; 80048 ×2; 80061; 80076; 81003; 82550; 82553; 83735; 83880; 84100; 84484 ×2; 85025 ×2; 87086; 87186; 93005; 96360; 96365; 96374; 99284; G0378 ×2; J0696 ×2; J2405; J7030 ×2; J7050; J7507 ×2; S0164

== ENCOUNTER → 2024-09-06 | Outpatient (REF) | payer MEDICARE ==
[~2024-09-06] MED LIST changes: +AMITRIPTYLINE H25 MG PO; +ARICEPT10 MG PO; +ARICEPT5 MG PO; +CEFDINIR300 MG PO; +FLOMAX0.4 MG PO; +HYDROCODON-ACE1 EA11; +LYRICA100 MG PO; +MEMANTINE HCL E28 MG; +METHOCARBAMOL750 MG PO; +TRAZODONE HCL50 MG
== END ==
LOC: RAD 12:35
PROVIDERS: ATTEND Internal Medicine
DX: R06.02 Shortness of breath (principal)
CPT/HCPCS: 71046

== ENCOUNTER 2025-02-10 20:12 | Emergency (ER) | payer OTHER, MEDICARE ==
[~2025-02-10] VITALS: Ht 160 cm; Wt 94.3 kg
[2025-02-10 20:15] VITALS: PULSE 87; RESP 20; TEMP 99
[2025-02-10] MEDS ORDERED: GUAIFENESIN 200 MG/10 ML UDC PO ONE (20:45)
[2025-02-10] MEDS: ALBUTEROL SULF 0.083% NEB SOLN 3 ML NEB NEB STA (21:02)
[2025-02-10] MEDS ORDERED: PREDNISONE50 MG PO (21:46)
[2025-02-10] MEDS ORDERED: ALBUTEROL1.25 MG/3 NEB (21:46)
[2025-02-10] MEDS ORDERED: VENTOLIN HFA18 GM INH (21:46)
[2025-02-10] MEDS ORDERED: AZITHROMYCIN250 MG PO (21:46)
[2025-02-10] MEDS ORDERED: BENZONATATE100 MG PO (21:46)
[2025-02-10 21:56] VITALS: BP 130/73; PULSE 97; RESP 20; O2SAT 99
== END 2025-02-10 21:57 | disposition home or self-care (01) ==
LOC: FSED 20:16
DX: R05.9 Cough, unspecified (principal); J20.9 Acute bronchitis, unspecified; Z11.52 Encounter for screening for COVID-19; Z94.4 Liver transplant status; Z95.5 Presence of coronary angioplasty implant and graft
CPT/HCPCS: 0223U; 71046; 87400; 99283